=== PATIENT | female | born 1950 | race Caucasian/White ===

== ENCOUNTER 2025-02-04 13:29 | Outpatient (AMB) | payer MEDICARE, OTHER, SELFPAY ==
--- NOTE | 2025-02-04 13:32 | A.OFFPC_ITS ---
Vital Signs 02/04/25 13:35 Height 5 ft 0.5 in Weight 174 lb 2 oz BMI 33.4 BP 120/82 Blood Pressure Location Rt brachial Position Sitting Respiration 16 Pulse 78 Pulse Source Pulse Oximeter Temp 97.1 F Temp Source Temporal Artery Scan Pulse Oximetry (%) 98 Oxygen Delivery Method Room Air Intake Visit Reasons: Routine, establish care Rn Medicare Required: No Accompanied by: Self / Same As Patient Allergies triamcinolone (From Kenalog) Adverse Reaction (Intermediate, Verified 02/04/25 13:32) tachycardia erythromycin base Adverse Reaction (Unknown, Verified 02/04/25 13:32) Unknown Medication List - Last Reconciled 02/04/25 by Mary Ann Shell MD ascorbic acid (vitamin C) mg PO bupropion HCl SR 200 mg PO QAM calc-D3-mag cit,ox-K2-herb 353 300 mg-25 mcg- 66 mg-37.5 mcg (Alive Calcium- Vitamin D3-K2) tabs PO coenzyme Q10 (CoQ-10) 100 mg PO DAILY fluoxetine 20 mg PO QAM fluticasone propionate 50 mcg/actuation 1 spray intranasal BID PRN lorazepam 0.5 mg PO BID PRN magnesium 200 mg PO DAILY methylphenidate HCl 10 mg PO QAM PRN multivitamin 1 tab PO DAILY protein ea PO trazodone 100 mg PO BEDTIME PRN Tobacco use date assessed: 02/04/25 Fall risk assessment: No Falls in past year Last assessed Fall Risk: 02/04/25 Dental Screening Dental Screen Date: 02/04/25 Did you have a dental visit in the last 12 months?: Yes Did you have a dental problem in the last 6 months where you did not have access to dental care?: No Was dental information given to patient?: Patient has dentist HPI HPI Comments History of Present Illness Details The patient is a 74 year old female presenting to [facility]. Depression and Anxiety: The patient has a past medical history of depression and anxiety and is established with a psychiatrist. She uses lorazepam sparingly for intense e pisodes of anxiety. She is currently processing her daughter's recent diagnosis of Lewy body dementia. Thrombophlebitis: The patient had a recent emergency room visit on January 07 for right lower extremity swelling and was diagnosed with thrombophlebitis. Osteoarthritis of right knee: The patient has ongoing right knee osteoarthritis and is being seen by [facility]. She has received steroid injections which have provided some pain improvement and has another one scheduled for February. She tried using compression stockings for her leg swelling but noted this increased discom fort in her right knee. RBBB branch block: The patient has know history was referred after she had an EKG done at an urgent care. Saw medical records director who discussed statin use based on her cardiovascular risk factor. Pt declined and coronary calcium CT was suggested. Health Maintenance: The patient has a history of polyps and is due for a colonoscopy soon. Mammogram done 12/2023 at [facility] Social History: - The patient is processing the recent d iagnosis of her daughter, who has Lewy Body Dementia and now lives in a facility. Review of Systems - Musculoskeletal: Reports ongoing right knee pain from osteoarthritis, which improves with steroid injections. - Extremities: Reports recent right lowe r extremity swelling. - Psychiatric: Reports episodes of anxie ty. Physical Exam - General: The patient is in no acute di stress. - HEENT: Extraocular movements are intac t. - Cardiovascular: Normal S1 and S2 heart sounds were auscultated. A soft murmur was noted across the precordium. - Lungs: Clear to auscultation bilateral ly. - Abdomen: Soft, nontender, and nondiste nded with normoactive bowel sounds. - Extremities: Trace edema was noted kalen aterally. - Breasts: No masses were palpated. Dens e breast tissue appreciated. Assessment and Plan 1. Re-establishment of care/Health Maint enance - The patient is a 74-year-old female es [facility]. - Plan is to obtain baseline labs includ ing a CBC, CMP, lipid panel, and A1c. - Will also obtain outside records. - The patient is due for a colonoscopy a nd her mammogram is up to date. 2. Thrombophlebitis of right lower extre mity - Patient was recently diagnosed in the ER. - Ultrasound report obtained- no evidenc e of DVT 3. Depression and anxiety - The patient has an established psychia trist and uses lorazepam as needed. - She will continue to follow up with [facility] psychiatrist. 4. Right bundle branch block - This was noted on a prior EKG. per car diologist - follow up re coronary calcium CT. 5. Right knee osteoarthritis - This is managed by an orthopedist with steroid injections, and the patient has one scheduled for February. Discussion Notes I have discussed the plan with the patient. We will proceed with ordering bloodwork including a CBC, CMP, lipid panel, and A1c. Patient Instructions - Please go to the lab to have your bloo d drawn for a complete blood count, metabolic panel, lipid panel, and hemoglobin A1c. - Continue to see your psychiatrist for your depression and anxiety as you have been. [facility] Medical History (Updated 02/04/25 @ 15:25 by Mary Ann Shell MD) Right knee pain Routine adult health maintenance Colon polyps Osteoarthritis, knee Impaired fasting glucose Anxiety Depression Surgical History (Updated 02/03/25 @ 18:51 by Mary Ann Shell MD) H/O arthroscopic knee surgery History of colonoscopy (~08/03/20) Family History (Updated 02/03/25 @ 18:55 by Mary Ann Shell MD) Daughter Lewy body dementia Mother Breast cancer Other Colon cancer Depression PTSD (post-traumatic stress disorder) Social History Housing: House Patient Tobacco Use Status: Never used Tobacco e-Cigarette/Vaping Use: Never Used service: No Current occupational status: retired Questionnaire AUDIT C Alcohol Use Questionnaire (AUDIT-C) 1. How often do you have a drink containing alcohol?: 2-4 times a month 2. How many drinks containing alcohol do you have on a typical day when you are drinking?: 1 or 2 3. How often do you have six or more drinks on one occasion?: Never Total Score: 2 Physical exam (Primary Care) Vital Signs: Last Vital Signs Temp 97.1 F 02/04/25 13:35 Pulse 78 02/04/25 13:35 Resp 16 02/04/25 13:35 BP 120/82 02/04/25 13:35 Pulse Ox 98 02/04/25 13:35 Oxygen Delivery Method Room Air 02/04/25 13:35 BMI result Body Mass Index 33.4 Tobacco/Smoking Status: Tobacco use Status Tobacco use date assessed 02/04/25 02/04/25 13:34 Patient Tobacco Use Status Never used Tobacco 02/04/25 13:43 e-Cigarette/Vaping Use Never Used 02/04/25 13:43 Coding Level of Care Code Est Pt Level 4 (17350) Complex EM visit Add On G2211 Diagnoses Impaired fasting glucose R73.01 Depression, unspecified depression type F32.A Depression Type: unspecified Anxiety F41.9 Primary osteoarthritis of right knee M17.11 Laterality: right Osteoarthritis type: primary Assessment & Plan Assessment & Plan (1) Impaired fasting glucose: Code(s): R73.01 - Impaired fasting glucose Category: Medical (2) Depression: Code(s): F32.A - Depression, unspecified Category: Medical Qualifiers: Depression Type: unspecified Qualified Code(s): F32.A - Depression, unspecified (3) Anxiety: Code(s): F41.9 - Anxiety disorder, unspecified Category: Medical (4) Osteoarthritis, knee: Code(s): M17.9 - Osteoarthritis of knee, unspecified Category: Medical Qualifiers: Laterality: right Osteoarthritis type: primary Qualified Code(s): M17.11 - Unilateral primary osteoarthritis, right knee Plan - Order labs: CBC, CMP, lipid panel, and A1c. - Continue follow-up with psychiatrist for depression and anxiety. - Follow up with orthopedics - colonoscopy referral Orders: Orders Complete Blood Count Auto Diff Today R73.01 - Impaired fasting glucose, Z00.00 - Encounter for general adult medical examination without abnormal findings Comprehensive Met. Panel Today R73.01 - Impaired fasting glucose, Z00.00 - Encounter for general adult medical examination without abnormal findings TSH reflex Free T4 Today R73.01 - Impaired fasting glucose, Z00.00 - Encounter for general adult medical examination without abnormal findings Hemoglobin A1c Today R73.01 - Impaired fasting glucose C Reactive Protein Today M25.561 - Pain in right knee Lipid Panel Today R73.01 - Impaired fasting glucose, Z00.00 - Encounter for general adult medical examination without abnormal findings Referrals Gastroenterology Referral K63.5 - Polyp of colon Medications: New lorazepam 0.5 mg PO BID PRN 28 tabs 2RF anxiety clotrimazole-betamethasone 1-0.05 % 1 appl topical BID 45 grams 8RF 2 weeks fluticasone propionate 50 mcg/actuation 1 spray intranasal BID PRN 16 grams 11RF nasal congestion
[2025-02-04 13:35] VITALS: BP 120/82; PULSE 78; RESP 16; TEMP 36.2; O2SAT 98; BMI 33.4
--- OUTSIDE RECORDS SUMMARY | 2025-02-04 16:21 | XMS_ITS | Clinical Summary ---
Author Organization [facility] Address [address] [place] [address] Phone Care Team Providers Care Upper Cutter Name Role Phone Puja Johnson MD Primary Care Provider [phone] Allergies Active Allergy Reactions Criticality Noted Date Comments Erythromycin 05/29/2024 Triamcinolone Acetonide 05/29/2024 Medications buPROPion SR (WELLBUTRIN SR) 200 mg 12 hr tablet Take 1 tablet (200 mg total) by mouth 1 (one) time each day in the morning. 5 Active traZODone (DESYREL) 100 mg tablet Take 1 tablet (100 mg total) by mouth at bedtime as needed. at bedtime 5 Active methylphenidate (RITALIN) 10 mg tablet TAKE 1 TABLET (10 MG) BY MOUTH AFTER BREAKFAST NEEDED 5 Active LORazepam (ATIVAN) 0.5 mg tablet TAKE 1 TABLET BY MOUTH TWICE A DAY NEEDED FOR ANXIETY FOR 14 DAYS 5 Active fluticasone propionate (FLONASE) 50 mcg/actuation nasal spray Administer 1 spray into each nostril 2 (two) times a day. 4 Active FLUoxetine (PROzac) 10 mg capsule TAKE 1 CAPSULE BY MOUTH DAILY WITH 20MG 5 Active calcipotriene (DOVONEX) 0.005 % cream Apply topically 2 (two) times a day. Active calcium citrate-vitamin D 250 mg-2.5 mcg (100 unit) per tablet Take 1 tablet by mouth 2 (two) times a day. Active guaiFENesin (ROBITUSSIN) 100 mg/5 mL liquid Take 10 mL (200 mg total) by mouth 3 (three) times a day if needed for cough. Active Social History Tobacco Use Types Packs/Day Years Used Date Smoking Tobacco: Never Assessed Comments Unknown Sex and Gender Information Value Date Recorded Sex Assigned at Not on file Legal Sex Female 8:12 AM EST Gender Identity Not on file Sexual Orientation Not on file Plan of Treatment Health Maintenance Due Date Last Done Comments Zoster Vaccines (1 of 2) 1998 Falls Risk Assessment 02/26/2022 Hepatitis C Screening 02/26/2022 Medicare Annual Wellness Visit 02/26/2022 Social Influencers of Health Screening 02/26/2022 Pneumococcal Vaccine: 50+ Years (2 of 2 - PCV20 or PCV21) 05/24/2022 05/24/2021 RSV Immunization Adult Patients (1 - 1-dose 75+ series) 12/29/2023 Depression Screening 03/26/2024 COVID-19 Vaccine ( - season) 2024 12/26/2022, 01/06/2021, 06/03/2020, Additional history exists Influenza Vaccine (#1) 2024 , 03/31/2023, 03/08/2022, Additional history exists DTaP,Tdap,and Td Vaccines (3 - Td or Tdap) 03/26/2027 03/26/2017, 03/21/2010 Osteoporosis Screening (Bone Density Screening) 01/15/2034 01/16/2024, 02/23/2020 Hepatitis A Vaccines Aged Out 12/05/2010, 04/18/2010, 03/21/2010 No longer eligible based on patient's age to complete this topic Hepatitis B Vaccines Completed 12/05/2010, 04/18/2010, 03/21/2010 Breast Cancer Screening Discontinued 01/15/20, 12/07/2022, 06/23/2021, Additional history exists HIB Vaccines Aged Out No longer eligi ble based on patient's age to complete this topic HPV Vaccines Aged Out No longer eligi ble based on patient's age to complete this topic IPV Vaccines Aged Out No longer eligi ble based on patient's age to complete this topic MMR Vaccines Aged Out No longer eligi ble based on patient's age to complete this topic Meningococcal ACWY Vaccine Aged Out N o longer eligible based on patient's age to complete this topic Meningococcal B Vaccine Aged Out No l onger eligible based on patient's age to complete this topic RSV Immunization Patients Under 20 months Aged Out No longer eligible based on patient's age to complete this topic Varicella Vaccines Aged Out No longer eligible based on patient's age to complete this topic Procedures Procedure Name Priority Date/Time Associated Diagnosis Comments Y[facility]IET DEXA AXIAL SKELETON Routine 01/16/2024 4:27 PM EDT YULIET SCREENING DIGITAL Routine 01/15/2024 11:32 AM EDT from Last 3 Months or Most Recently Relevant to Health Maintenance Results * YULIET DEXA AXIAL SKELETON (01/16/2024 4:27 PM EDT) Anatomical Region Laterality Modality Mammography 01/15/2024 9:58 AM EDT Narrative 01/16/2024 4:27 PM EDT [facility] Diagnostic Imaging Department [address] [place] [address] Patient: AMANDA DEGROOT /Age/Sex: 1950 - 73 - F Unit#: [id number] Location/Status: SPDIMAM/REG CLI Mnemonic/Ordering Site: MAMDEXAAX/SPMAM Ordering Physician: PUJA JOHNSON MD [facility] Dexa Axial Skeleton - 01/15/24 - [id number] Report Status:Signed History: Low estrogen state due to menopause. Personal history of fracture. Comparison: 02/23/20 Findings: Bone densitometry is performed utilizing dual energy x-ray absorptiometry (DXA) in the [facility] unit. The lumbar spine and proximal femora are evaluated in the AP projection. The FRAX questionaire was completed. The results indicate normal bone mineral density, with a right femoral neck T- score of -0.6. The Z score is 1.0, indicating bone mineral density slightly higher than normal for age. There has been no statistically significant change. The detailed DEXA report will be mailed to the referring physician's office. [facility] FRAX: 10-year Probability of Fracture: Major Osteoporotic 12.3 percent Hip 1.3 percent. IMPRESSION: Normal bone mineral density. [id number] Dictating Physician: VALERIE BROWN MD Electronically Signed by: VALERIE BROWN MD Dic Date/Time: 01/16/241626 Sign date/Time: 01/16/241626 Procedure Note Valerie Brown MD - 01/22/2024 [facility] Diagnostic Imaging Department [address] [place] [address] Patient: LEVARWENDYAMANDAO.B./Age/Sex: 1950 - 73 - F Unit#: [id number] [facility] Ordering Physician: PUJA JOHNSON MD [facility] Dexa Axial Skeleton - 01/15/24 - [id number] Report Status:Signed History: Low estrogen state due to menopause. Personal history offracture. Comparison: 02/23/20 Findings: Bone densitometry is performed utilizing dual energy x-ray absorptiometry(DXA) in the [facility] unit. The lumbar spine and proximal femora areevaluated in the AP projection. The FRAX questionaire was completed. The results indicate normal bone mineral density, with a right femoralneck T- score of -0.6. The Z score is 1.0, indicating bone mineral densityslightly higher than normal for age. There has been no statistically significant change. The detailed DEXAreport will be mailed to the referring physician's office. [employer] FRAX: 10-year Probability of Fracture: Major Osteoporotic 12.3 percent Hip 1.3 percent. IMPRESSION: Normal bone mineral density. [id number] Dictating Physician: VALERIE BROWN MD Electronically Signed by: VALERIE BROWN MD Dic Date/Time: 01/16/241626 Sign date/Time: 01/16/241626 us Puja Johnson MD IMG BI PROCEDURES Final Re sult * YULIET SCREENING DIGITAL (01/15/2024 11:32 AM EDT) Anatomical Region Laterality Modality Mammography 01/15/2024 9:58 AM EDT Narrative 01/15/2024 11:32 AM EDT [facility] Diagnostic Imaging Department [address] [place] [id number] Patient: JOEAMANDAO.B./Age/Sex: 1950 - 73 - F Unit#: [id number] Location/Status: SPDIMAM/REG CLI Mnemonic/Ordering Site: [facility] Ordering Physician: PUJA JOHNSON MD [facility] Screening Digital - 01/15/24 - 1053 Report Status:Signed EXAM: [facility] Screening Digital EXAM DATE AND TIME: 01/15/2024 10:54 AM HISTORY: Annual screening COMPARISON: 12/07/2022, 06/23/2021, 02/23/2020 and 02/15/2018 TECHNIQUE: Bilateral digital breast tomosynthesis was performed in the CC and MLO projections. Computer aided detection with 9GAG 7.2-H and [employer] 3D 3.1 was employed. TISSUE DENSITY: b. There are scattered areas of fibroglandular density. FINDINGS: No suspicious masses, grouped microcalcifications, or areas of architectural distortion are seen. The skin and vascularity are unremarkable. IMPRESSION: Stable mammographic appearance of the breasts. No evidence of malignancy is seen. A negative mammogram in the presence of a clinically suspicious palpable abnormality does not preclude the possibility of malignancy or alter the indications for biopsy. BI-RADS: Category 1: Negative RECOMMENDATION(S): 1: Routine screening mammogram BILATERAL in 1 year. Dictating Physician: COBY CHAVIRA MD Electronically Signed by: COBY CHAVIRA MD Dic Date/Time: 01/15/24 1129 Sign date/Time: 01/15/24 1132 Procedure Note Coby Chavira MD - 01/22/2024 [facility] Diagnostic Imaging Department [address] [place] [address] Patient: AMANDA DEGROOT /Age/Sex: 1950 - 73 - F Unit#: [id number] Location/Status: [facility]/REG CLI Mnemonic/Ordering Site: [facility] Ordering Physician: PUJA JOHNSON MD [facility] Screening Digital - 01/15/24 - 1053 Report Status:Signed EXAM: [facility] Screening Digital EXAM DATE AND TIME: 01/15/2024 10:54 AM HISTORY: Annual screening COMPARISON: 12/07/2022, 06/23/2021, 02/23/2020 and 02/15/2018 TECHNIQUE: Bilateral digital breast tomosynthesis was performed in the CCand MLO projections. Computer aided detection with 9GAG 7.2-H and[employer] 3D 3.1 was employed. TISSUE DENSITY: b. There are scattered areas of fibroglandular density. FINDINGS: No suspicious masses, grouped microcalcifications, or areas ofarchitectural distortion are seen. The skin and vascularity are unremarkable. IMPRESSION: Stable mammographic appearance of the breasts. No evidence of malignancyis seen. A negative mammogram in the presence of a clinically suspicious palpable abnormality does not preclude the possibility of malignancy or alter the indications for biopsy. BI-RADS: Category 1: Negative RECOMMENDATION(S): 1: Routine screening mammogram BILATERAL in 1 year. Dictating Physician: COBY CHAVIRA MD Electronically Signed by: COBY CHAVIRA MD Dic Date/Time: 01/15/24 1129 Sign date/Time: 01/15/24 1132 Puja Johnson MD IMG BI PROCEDURES Final Re sult from Last 3 Months or Most Recently Relevant to Health Maintenance Insurance MEDICARE [facility] Care Teams Upper Cutter Relationship Specialty Start Date End Date Puja Johnson MD [address] [place] [address] PCP - General Internal Medicine 05/29/24
--- OUTSIDE RECORDS SUMMARY | 2025-02-04 16:22 | XMS_ITS | Data Portability ---
Author Organization [facility], [facility] Address [address] [place] [address] Care Team Providers Care Director Of Vocational Guidance Name Role Phone PUJA JOHNSON Referring Provider [phone] PUJA JOHNSON Primary Care Provider Assessment Encounter Date Assessment Date Assessment LastModified by Organization Details LastModified Time 09/24/2024 09/24/2024 A: Pt presents c improved aa flex today. Responded well to progressions c clams. Sore post rx. Rx shortened d/t time constraints. P: Cont c POC. Not available 09/24/2024 16:17:32 10/07/2024 10/07/2024 A: Pt presents c poor angelica to rx today, ther ex modified to pt angelica, pain throughout session. Flexion ROM sig decreased today d/t pain. P: Cont c POC. Not available 10/07/2024 13:33:05 10/10/2024 10/10/2024 A: Pt's flexion is very compared with her left side. P: Cont c POC. [email or web address] Not available 10/10/2024 15:34:25 10/15/2024 10/15/2024 A: Pt presents c good angelica to ther ex c modified positioning. Tight c HS stretch. P: Cont c POC. Not available 10/15/2024 13:35:25 10/21/2024 10/21/2024 I am seeing the patient today under the supervision of who was available but who did not see the patient. HPI: Patient comes in for recheck of right knee pain. Has known osteoarthritis in the lateral compartment of the knee(s). We had implemented gel injections approximately 4 months ago, started physical therapy shortly after this. Patient is here today for recheck after these modalities. No new injury or modalities. PT has been aggravating things as of recent. She is having difficulties with activities of daily living. Past family, medical, social history and review of systems has been reviewed, updated and is located in the patient s chart. Examination:The patient is well appearing and in no apparent distress. Alert and oriented x3. Vital signs per intake sheet. Examination of the right knee reveals Mild effusion. No erythema or warmth. Decreased range of motion. slight valgus deformity. Point tender over the lateral joint line. Calf soft and nontender. 4+/5 strength of knee flexion extension. Impression: Osteoarthritis, right knee Plan: Nature of the diagnosis discussed with the patient today. Both surgical and nonsurgical options were reviewed. Conservative measures were discussed at length including but not limited to physical therapy, bracing, anti-inflammatori es and injection therapies. Please see the procedure note for documentation about the procedure performed today. Follow-up with us in 3 months for discussion of continued conservative management versus surgical management. [email or web address] Not available 10/21/2024 16:10:25 Plan of Treatment Reminders Order Date Submit Date Provider Last Modified By Organization Details Last Modified Time Details Appointments RECHECK 15 2024 09:15A Socorro Morrow PA-C Not available Not available Not available Lab None recorded . Referral None recorded . Procedures None recorded . Surgeries None recorded . Imaging XR, knee, 4 or more view - recheck right knee pain room [address] [facility], [address], [address], [place], [address], 10/31/2024 13:26:59 Medication Orders None recorded . Patient TargetsNo targets recorded. Patient InstructionsNo instructions recorded. Reason for Referral None Reported. Results Created Date Observation Date Name Description Value Unit Range Abnormal Flag Note LastModifiedBy Organization Detail LastModifiedTime 10/22/19 25 10/21/2024 XR, knee, 4 or more view http:/ [email or web address] ?Encry pted=s hAaTro YD8dLq bEUv6g %2BXZw aYqtaq 0bqfl% 2Fg9IQ a4ajBk vP9nXo QUaueC m3YtLR FvZlgJ JJ8mAn HZtai3 9c0027 AC0Klb n6DVaa hKiQtr MwF INTERFACE [facility] Office [address] [facility] [address], [place], [address], 10/21/2024 15:58:37 10/22/19 25 10/21/2024 XR, knee, 4 or more view http:/ [email or web address] ?Encry pted=s hAaTro YD8dLq bEUv6g %2BXZw aYqtaq 0bqfl% 2Fg9IQ a4ajBk vP9nXo QUaueC m3YtLR FvZlgJ JJ8mAn HZtai3 1p8268 AC0Klb n6DVaa hKiQtr MwF INTERFACE [facility] [address] [address], [place], [address], 10/21/2024 15:58:38 Result Notes Documentation Provider Name and Address Organization Details Recorded Time Xr, Knee, 4 Or More View : [email or web address]? Encrypted=jrQrUluLA4jOsxP Uv6g%9FWSxcIizji1qesq%2Fg 1RFm3pwWhdN0tOpJSuxuHu6Nc XXRtPsfBKE4cUvZSmbk08p921 3FN7Uwzj8YJnurTiFwwTcX Not Available [facility] 10/21/2024 15:58: 37 Xr, Knee, 4 Or More View : [email or web address] Encrypted=dfQfIhpLA0tAdjQ Uv6g%6HNKfvLxqzj4gkou%2Fg 4BTg4syXqmF2iRaHGoieBz2Wx QQNmXzzSJQ6aTnFYula52b587 2DD7Cmtl4NSpylMxMupZjH Not Available [facility] 10/21/2024 15:58: 39 Problems Name Problem SNOMED Code Status Onset Date Resolution Date Notes Provider Name and Address Organization Details Recorded Time No complaints 334054723 Active Status : 'A'; Not Available [facility] 4 09:20:28 Tear of lateral meniscus of knee 352293751 Active 2023 RONALD persaud, [facility] 4 14:54:34 Acute tear of lateral meniscus of right knee 3325753244509 9100 Active 2023 RONALD GAMEZ null, [facility] 4 15:01:28 Tear of lateral meniscus of knee 887580358 Active 2023 RONALD GAMEZ [facility], [facility] 4 15:06:23 Osteoarthr itis of right knee joint 0485604631024 00 Active 2024 Ora Arevalo, [employer] [address] [facility], [place], [address] , [facility] 5 12:29:01 Pain of right knee joint 9413321264329 00 Active 2024 ASHWIN L'HEUREUX [facility], [facility] 5 15:51:17 Problem Notes None recorded. Procedures Surgical History Date Name Laterality Status Provider Name and Address Organization Details Recorded Time 5 53292 Therapeutic Exercise (1:1) cancelled Tarun Reaves PT [address] [facility], [place], [address], [facility] 10/21/2024 14:34:54 5 JZKNEE INJ completed Giuliano Morrow PA-C [address], [place], [address], [facility] 10/21/2024 16:05:13 5 96015 Therapeutic Exercise (1:1) cancelled Tarun Reaves PT [address], [place], [address], [facility] 10/17/2024 11:51:02 5 23261 Therapeutic Exercise (1:1) completed Ora Arevalo PTA [address], [place], [address], [facility] 10/15/2024 13:35:02 5 41364 Therapeutic Exercise (1:1) completed Tarun Revaes, PT [address], [place], [address], [facility] 10/10/2024 15:33:27 5 73986 Therapeutic Exercise (1:1) completed Ora Arevalo [employer] [address], [place], [address], [facility] 10/07/2024 13:31:12 5 05034 Therapeutic Exercise (1:1) cancelled Ora Arevalo PTA [address], [place], [address], [facility] 09/30/2024 12:17:04 5 58223 Therapeutic Exercise (1:1) cancelled Ora Arevalo PTA [address], [place], [address], [facility] 09/29/2024 11:49:49 5 99498 Therapeutic Exercise (1:1) completed Ora Arevalo PTA [address], [place], [address], [facility] 09/24/2024 15:48:42 5 97633 Therapeutic Exercise (1:1) completed Tarun Reaves, PT [address], [place], [address], [facility] 09/18/2024 11:43:49 5 11847 Therapeutic Exercise (1:1) cancelled Ora Arevalo [employer] [address], [place], [address], [facility] 09/12/2024 15:17:11 5 99472 Therapeutic Exercise (1:1) completed Ora Arevalo [employer] [address], [place], [address], [facility] 09/10/2024 12:30:33 5 32155 Therapeutic Exercise (1:1) completed Ora Arevalo, [employer] [address], [place], [address], [facility] 09/08/2024 15:30:04 5 67715 Therapeutic Exercise (1:1) completed Ora Arevalo [employer] [address], [place], [address], [facility] 09/04/2024 15:56:41 5 34356 Therapeutic Exercise (1:1) completed Tarun Reaves PT [address], [place], [address], [facility] 08/28/2024 09:42:58 5 17416 Therapeutic Exercise (1:1) completed Tarun Reaves PT [address], [place], [address], [facility] 08/28/2024 12:03:22 5 22134 Therapeutic Exercise (1:1) cancelled Ora Arevalo [employer] [address], [place], [address], [facility] 08/22/2024 16:53:04 5 94458 Therapeutic Exercise (1:1) cancelled Ora Arevalo [employer] [address], [place], [address], [facility] 08/20/2024 12:17:16 5 70114 Therapeutic Exercise (1:1) completed Ora Arevalo, [employer] [address], [place], [address], [facility] 08/13/2024 16:21:15 5 82274 Therapeutic Exercise (1:1) completed Tarun Reaves, PT [address], [place], [address], [facility] 08/11/2024 13:09:14 5 62332 Therapeutic Exercise (1:1) completed Tarun Reaves, PT [address], [place], [address], [facility] 08/07/2024 09:51:03 5 91783: Low complexity PT Eval completed Tarun Reaves, PT [address], [place], [address], [facility] 08/07/2024 07:09:11 5 G8421 BMI Not Calculated, Reason Not Specified completed Tarun Reaves, PT [address], [place], [address], [facility] 08/07/2024 09:51:09 5 G8427 Current Medication Documented completed Tarun Reaves PT [address], [place], [address], [facility] 08/07/2024 09:51:14 5 Hymovis Knee Injection completed Giuliano Morrow PA-C [address], [place], [address], [facility] 06/09/2024 08:13:19 5 Hymovis Knee Injection completed Giuliano Morrow PA-C [address], [place], [address], [facility] 06/02/2024 07:37:16 4 70840 Therapeutic Exercise (1:1) completed Refugio Sun PTA [address], [place], [address], [facility] 01/03/2024 17:32:37 4 22976 Therapeutic Exercise (1:1) completed Refugio Sun PTA [address], [place], [address], [facility] 12/19/2023 12:43:44 4 10123 Therapeutic Exercise (1:1) completed Refugio Sun PTA [address], [place], [address], [facility] 12/11/2023 18:11:22 4 79637 Therapeutic Exercise (1:1) completed Refugio Sun PTA [address], [place], [address], [facility] 12/06/2023 18:30:20 4 83776 Therapeutic Exercise (1:1) completed Refugio Sun PTA [address], [place], [address], [facility] 11/27/2023 18:04:45 4 89725 Therapeutic Exercise (1:1) completed Refugio Sun PTA [address], [place], [address], [facility] 11/21/2023 11:24:17 4 32761 Therapeutic Exercise (1:1) cancelled Refugio Sun PTA [address], [place], [address], [facility] 11/16/2023 10:54:13 4 99152 Therapeutic Exercise (1:1) cancelled Refugio Sun PTA [address], [place], [address], [facility] 11/19/2023 11:57:49 4 60967 Therapeutic Exercise (1:1) completed Refugio Sun PTA [address], [place], [address], [facility] 11/15/2023 17:31:46 4 45306 Therapeutic Exercise (1:1) cancelled Refugio Sun PTA [address], [place], [address], [facility] 11/09/2023 11:19:58 4 76244 Therapeutic Exercise (1:1) completed Refugio Sun PTA [address], [place], [address], [facility] 11/07/2023 15:50:29 4 71698 Therapeutic Exercise (1:1) completed Refugio Sun PTA [address], [place], [address], [facility] 11/06/2023 16:19:44 4 26452 Therapeutic Exercise (1:1) completed Refugio Sun PTA [address], [place], [address], [facility] 10/31/2023 11:54:40 4 27730 Therapeutic Exercise (1:1) completed Refugio Sun PTA [address], [place], [address], [facility] 10/30/2023 17:12:18 4 81852: Manual therapy completed Refugio Sun PTA [address], [place], [address], [facility] 10/30/2023 18:31:53 4 92728 Therapeutic Exercise (1:1) completed Refugio Sun PTA [address], [place], [address], [facility] 10/26/2023 11:59:33 4 03875 Therapeutic Exercise (1:1) completed Tarun Reaves, PT [address], [place], [address], [facility] 10/24/2023 16:42:31 4 28487 Therapeutic Exercise (1:1) cancelled Tarun Reaves PT [address], [place], [address], [facility] 10/16/2023 09:21:55 4 21707 Therapeutic Exercise (1:1) completed Tarun Reaves PT [address], [place], [address], [facility] 10/15/2023 18:52:54 4 94934 Therapeutic Exercise (1:1) completed Refugio Sun [employer] [address], [place], [address], [facility] 10/12/2023 10:20:54 4 35459 Therapeutic Exercise (1:1) completed Refugio Sun [employer] [address], [place], [address], [facility] 10/03/2023 12:22:18 4 62182 Therapeutic Exercise (1:1) completed Refugio Sun PTA [address], [place], [address], [facility] 10/01/2023 16:44:52 4 13572 Therapeutic Exercise (1:1) completed Refugio Sun PTA [address], [place], [address], [facility] 09/28/2023 16:08:45 4 42534 Therapeutic Exercise (1:1) completed Refugio Sun PTA [address], [place], [address], [facility] 09/28/2023 16:19:10 4 66824 Therapeutic Exercise (1:1) completed Refugio Sun PTA [address], [place], [address], [facility] 09/18/2023 17:59:49 4 77908 Therapeutic Exercise (1:1) completed Tarun Reaves PT [address], [place], [address], [facility] 09/14/2023 12:01:24 4 97424: Low complexity PT Eval completed Tarun Reaves, PT [address], [place], [address], [facility] 09/14/2023 12:01:15 4 G8421 BMI Not Calculated, Reason Not Specified completed Tarun Reaves, PT [address] [facility], [place], [address], [facility] 09/14/2023 12:00:43 4 G8427 Current Medication Documented completed Tarun Reaves, PT [address], [place], [address], [facility] 09/14/2023 12:00:31 4 Gel-One Knee Injection completed Giuliano Morrow PA-C [address] [facility], [place], [address], [facility] 06/13/2023 06:43:44 Imaging Results None recorded. Procedure Notes None recorded. Medical Equipment None Reported. Allergies Allergen ID Allergen Name Allergen Category Reaction Reaction Severity Criticality Documentation Date Start Date Code Code System Note Provider Name and Address Organization Details Recorded Time 764852 erythromy jonah medicatio n Not available Not available Not available 06/12/2023 4053 RxNorm KAYLIA L'HEUREUX [facility] 4 12:03:13 Medications Name Sig Start Date Stop Date Status Note LastModified by Organization Details LastModified Time amoxicillin 500 mg capsule TAKE 1 CAPSULE BY MOUTH 3 TIMES A DAY 06/11 completed Not Available Not Available Not Available trazodone 50 mg tablet 04/11 completed Not Available Not Available Not Available benzonatate 200 mg capsule TAKE 1 CAPSULE BY MOUTH THREE TIMES A DAY NEEDED FOR COUGH FOR 5 DAYS active Not Available Not Available No t Available methylpheni date 10 mg tablet TAKE 1 TABLET (10 MG) BY MOUTH AFTER BREAKFAST NEEDED active Not Available Not Available No t Available hydrocodone 5 mg-acetamin ophen 325 mg tablet TAKE 1 TABLET BY MOUTH EVERY 6 HOURS NEEDED PAIN 06/11 completed Not Available Not Available Not Available meloxicam 15 mg tablet Take 1 tablet every day by oral route after meal(s). 2023 active Not Available Not Available Not Avai lable tramadol 50 mg tablet TAKE 1 TABLET EVERY 6 HOURS BY ORAL ROUTE AFTER MEAL(S). active Not Available Not Available No t Available lorazepam 0.5 mg tablet TAKE 1 TABLET BY MOUTH TWICE A DAY NEEDED FOR ANXIETY FOR 14 DAYS active Not Available Not Available No t Available trazodone 100 mg tablet TAKE 1 TABLET DAILY NEEDED AT BEDTIME active Not Available Not Available No t Available benzonatate 100 mg capsule TAKE 2 CAPSULES BY MOUTH 3 TIMES A DAY active Not Available Not Available No t Available doxycycline monohydrate 100 mg capsule TAKE 1 CAPSULE BY MOUTH TWICE A DAY FOR 7 DAYS active Not Available Not Available No t Available cephalexin 500 mg capsule TAKE 1 CAPSULE BY MOUTH TWICE A DAY FOR 5 DAYS active Not Available Not Available No t Available clotrimazol e-betametha sone 1 %-0.05 % topical cream APPLY TO AFFECTED AREA TWICE A DAY active Not Available Not Available No t Available fluoxetine 10 mg capsule TAKE 1 CAPSULE BY MOUTH DAILY WITH 20MG active Not Available Not Available No t Available ibuprofen 200 mg tablet TAKE 1-3 CAPSULES NEEDED EVERY 8 HOURS active Not Available Not Available No t Available cephalexin 500 mg tablet TAKE 1 TABLET BY MOUTH TWICE A DAY FOR 3 DAYS active Not Available Not Available No t Available hydroxyzine HCl 10 mg tablet TAKE 1 TABLET BY MOUTH THREE TIMES A DAY NEEDED active Not Available Not Available No t Available cefdinir 300 mg capsule TAKE 1 CAPSULE BY MOUTH TWICE A DAY FOR 7 DAYS active Not Available Not Available No t Available fluoxetine 20 mg capsule TAKE 1 CAPSULE AFTER BREAKFAST active Not Available Not Available No t Available fluticasone propionate 50 mcg/actuati on nasal spray,suspe nsion SPRAY 1 SPRAY INTO EACH NOSTRIL TWICE A DAY active Not Available Not Available No t Available naproxen 500 mg tablet TAKE 1 TABLET BY MOUTH TWICE A DAY 04/11 completed Not Available Not Available Not Available amoxicillin 875 mg-potassiu m clavulanate 125 mg tablet TAKE 1 TABLET BY MOUTH 2 TIMES A DAY,X7 DAYS WITH FOOD active Not Available Not Available No t Available oxycodone 5 mg tablet TAKE 1-2 TABLETS EVERY 6 HOURS NEEDED FOR PAIN 3 DAY RX. active Not Available Not Available No t Available bupropion HCl SR 200 mg tablet,12 hr sustained-r elease TAKE 1 TABLET DAILY IN THE MORNING (SOLCO MFR) active Not Available Not Available No t Available chlorhexidi ne gluconate 0.12 % mouthwash RINSE WITH 10MLS THEN SPIT TWICE DAILY FOR 3 WEEKS *DO NOT SWALLOW active Not Available Not Available No t Available Ritalin Ritalin 10MG Tablet 2014 active Statu s: 'Curr ent'; Not Available Not Available Not Available budesonide- formoterol HFA 80 mcg-4.5 mcg/actuati on aerosol inhaler INHALE 2 PUFFS BY MOUTH TWICE A DAY (RINSE MOUTH & THROAT AFTER USE) active Not Available Not Available No t Available Vitals Date Recorded Body height Body mass index (BMI) Body weight Provider Name and Address Organization Details Last Updated DateTime 10/21/2024 157.48 cm 30.2 kg/m2 07038.74 g Camileon HeelsPAUL Morocho'[facility]OGEL[facility] 10/21/2024 15:50:56 Social History Question Answer Notes LastModified by [employer] Details LastModified Time Tobacco Smoking Status Never Smoker ASHWIN L'HEUREUNing [facility] 06/12/2023 12:04:30 What Is Your Relationship Status? Information not available 06/12/2023 Sex: Unknown Functional Status Question Answer Note LastModified by [employer] Details LastModified Time Do you use any illicit or recreational drugs? No Information not available 06/12/2023 Do you or have you ever used any other forms of tobacco or nicotine? No Information not available 06/12/2023 What is your level of alcohol consumption? None Information not available 06/12/2023 Mental Status None recorded. Family History Nothing Reported. Medical History Condition Response Coronary Artery Disease N Anxiety/Depression Y Emphysema N COPD N Pacemaker N Vascular Disease N Gastrointestinal Disease N Autoimmune disease N Orthotics N Arthritis Y Blood Clot N Acid Reflux (GERD) N Cancer N Stroke N Rheumatoid Arthritis N Arrhythmia N Fibromyalgia N Allergies/Hayfever Y Thyroid Problems N Kidney/Bladder Problems N Anemia N Heart Attack ([place]) N Diabetes N Bleeding Disorder N Seizures/Epilepsy N AIDS/HIV N Congestive Heart Failure (CHF) N Asthma N Peripheral Vascular Disease N Sleep Apnea N Hepatitis N Heart Disease N Pulmonary Embolism N Hypertension N Osteoporosis N Gynecological HistoryNo gynecological history recorded. Obstetrics History GPAL:G 0 P 0 0 0 0 Past Encounters Encounter ID Performer Location Encounter Start Date Encounter Closed Date Diagnosis/Indication Diagnosis SNOMED-CT Code Diagnosis ICD10 Code Diagnosis IMO Codes Diagnosis Note [id number] Giuliano Morrow PA-C [facility] [address] [place] [address] 06/12/2023 10:26:29 06/14/2023 07:59:05 Osteoarthritis of right knee joint 6200799578 09660 M17.11 [id number] Giuliano Morrow PA-C [facility] [address] [place] [address] 07/12/2023 17:26:30 08/02/2023 10:11:25 Pain of right knee joint [id number] 63876 M25.561 Osteoarthr itis of right knee joint [id number] M17.11 [id number] Giuliano Morrow PA-C [facility] [address] [place] [address] 07/30/2023 10:25:57 08/22/2023 14:14:35 Osteoarthritis of left knee joint [id number] M17.12 [id number] MD Marti Duran [address] [place] [address] 08/09/2023 15:19:49 08/31/2023 13:36:54 Tear of lateral meniscus of knee [id number] S83.281D [id number] Manoj Vaughan PA-C [facility] [address] [place] [address] 09/11/2023 14:25:54 10/16/2023 13:58:00 Derangement of lateral meniscus of right knee [id number] [id number] M23.713 [id number] Tarun Reaves, PT [facility] [address] [place] [address] 09/14/2023 11:00:00 09/14/2023 12:06:53 Derangement of right knee [id number] M23.006 [id number] Refugio Sun [employer] [facility] [address] [place] [address] 09/18/2023 16:52:38 09/18/2023 18:01:19 Derangement of right knee [id number] M23.317 [id number] Refugio Sun, [employer] [facility] [address] [place] [address] 09/21/2023 15:24:06 09/28/2023 16:20:07 Derangement of right knee [id number] M23.712 [id number] Refugio Sun, [employer] [facility] [address] [place] [address] 09/28/2023 15:03:31 09/28/2023 16:18:40 Derangement of right knee [id number] M23.788 [id number] Refugio Sun, [employer] [facility] [address] [place] [address] 10/02/2023 16:58:20 10/02/2023 18:34:11 Derangement of right knee [id number] M23.994 [id number] Refugio Sun, [employer] [facility] [address] [place] [address] 10/04/2023 16:54:47 10/04/2023 18:35:31 Derangement of right knee [id number] M23.594 [id number] Refugio Sun, [employer] [facility] [address] [place] [address] 10/12/2023 09:27:46 10/12/2023 10:21:39 Derangement of right knee [id number] [id number] M23.814 [id number] Tarun Reaves, PT [facility] [address] [place] [address] 10/15/2023 17:49:14 10/15/2023 18:55:29 Derangement of right knee 5519943817 [id number] M23.917 [id number] Tarun Reaves, PT [facility] [address] [place] [address] 10/24/2023 15:51:45 10/24/2023 16:47:04 Derangement of right knee [id number] M23.814 [id number] Refugio Sun, [employer] [facility] [address] [place] [address] 10/26/2023 15:51:41 10/26/2023 16:40:28 Derangement of right knee [id number] [id number] M23.510 [id number] Refugio Sun, [employer] [facility] [address] [facility] [place] [address] 10/30/2023 17:28:30 10/30/2023 18:34:32 Derangement of right knee [id number] [id number] M23.216 [id number] Refugio Sun, [employer] [facility] [address] [facility] [place] [address] 11/01/2023 17:21:35 11/01/2023 18:09:31 Derangement of right knee [id number] M23.749 [id number] Refugio Sun, [employer] [facility] [address] [facility] [place] [address] 11/06/2023 15:23:30 11/06/2023 16:27:01 Derangement of right knee 1369908473 [id number] M23.387 [id number] Refugio Sun, [employer] [facility] [address] [facility] [place] [address] 11/09/2023 07:53:10 11/09/2023 08:45:21 Derangement of right knee [id number] [id number] M23.599 [id number] Refugio Sun, [employer] [facility] [address] [facility] [place] [address] 11/15/2023 16:50:32 11/15/2023 17:32:31 Derangement of right knee [id number] [id number] M23.128 [id number] Refugio Sun, [employer] [facility] [address] [facility] [place] [address] 11/21/2023 10:32:27 11/21/2023 11:24:47 Derangement of right knee 5534136124 7274669 M23.416 [id number] Refugio Sun, [employer] [facility] [address] [place] [address] 11/27/2023 17:22:28 11/27/2023 18:35:01 Derangement of right knee 5621601354 [id number] M23.136 [id number] Refugio Sun, [employer] [facility] [address] [place] [address] 12/06/2023 17:24:50 12/06/2023 18:30:45 Derangement of right knee 5374074052 [id number] M23.325 [id number] Refugio Sun, [employer] [facility] [address] [place] [place] [address] 12/11/2023 17:29:15 12/11/2023 18:13:19 Derangement of right knee [id number] [id number] M23.555 [id number] Refugio Sun, [employer] [facility] [address] [place] [place] [address] 12/19/2023 11:59:52 12/19/2023 12:55:43 Derangement of right knee [id number] M23.951 [id number] Refugio Sun, [employer] [facility] [address] [place] [address] 01/03/2024 16:48:39 01/03/2024 17:35:11 Derangement of right knee [id number] M23.996 [id number] FLORENCIA [facility] [address] [place] [address] 04/11/2024 10:46:17 04/23/2024 11:42:09 Tear of lateral meniscus of knee 053486488 S83.281D Osteoarthr itis of right knee joint [id number] 37197 M17.11 [id number] FLORENCIA Zuniga [address] [place] [address] 06/02/2024 08:14:32 06/17/2024 07:08:48 Osteoarthritis of right knee joint [id number] [facility] M17.11 [id number] FLORENCIA [facility]un[facility] - Marti [address] floor [address] [place] [address] 06/09/2024 12:49:58 06/20/2024 15:36:12 Osteoarthritis of right knee joint [id number] [facility] M17.11 [id number] Tarun Reaves, PT MAEGAN - [facility] [address] [place] [address] 08/07/2024 08:51:34 08/07/2024 09:59:28 Osteoarthritis of right knee joint [id number] [facility] M17.11 [id number] Tarun Reaves, PT [facility] - [facility] [address] [place] [address] 08/11/2024 12:37:49 08/11/2024 13:11:45 Osteoarthritis of right knee joint [id number] [facility] M17.11 [id number] Ora Arevalo, [employer] [facility] - [facility] [address] [place] [address] 08/13/2024 15:29:14 08/13/2024 16:28:42 Osteoarthritis of right knee joint [id number] [facility] M17.11 [id number] Tarun Reaves, PT [facility] - [facility] [address] [place] [address] 09/01/2024 14:59:50 09/01/2024 15:35:40 Osteoarthritis of right knee joint [id number] [facility] M17.11 [id number] Tarun Reaves, PT [facility] - [facility] [address] [place] [address] 08/28/2024 13:26:40 08/28/2024 14:16:45 Osteoarthritis of right knee joint [id number] [facility] M17.11 [id number] Ora Arevalo, [employer] [facility] - [facility] [address] [place] [place] [address] 09/04/2024 14:50:20 09/04/2024 16:04:59 Osteoarthritis of right knee joint [id number] [facility] M17.11 [id number] Ora Arevalo, [employer] [facility] - [facility] [address] [place] [place] [address] 09/08/2024 14:29:06 09/08/2024 15:46:26 Osteoarthritis of right knee joint [id number] [facility] M17.11 [id number] Ora Arevalo, [employer] [facility] - [facility] [address] [facility] [address] 09/11/2024 12:00:31 09/11/2024 13:15:04 Osteoarthritis of right knee joint [id number] 68011 M17.11 [id number] Tarun Reaves, PT [facility] - [facility] [address] [place] [address] 09/18/2024 11:02:23 09/18/2024 11:47:56 Osteoarthritis of right knee joint [id number] 30292 M17.11 [id number] Ora Arevalo, [employer] [facility] - [facility] [address] [place] [address] 09/24/2024 15:39:00 09/24/2024 16:18:11 Osteoarthritis of right knee joint [id number] [facility] M17.11 [id number] Ora Arevalo, [employer] [facility] - [facility] [address] [facility] [address] 10/07/2024 12:58:53 10/07/2024 13:34:02 Osteoarthritis of right knee joint [id number] [facility] M17.11 [id number] Tarun Reaves, PT [facility] - [facility] [address] [facility] [place] [address] 10/10/2024 14:54:28 10/10/2024 15:35:11 Osteoarthritis of right knee joint [id number] [facility] M17.11 [id number] Ora Arevalo, [employer] [facility] - [facility] [address] [facility] [place] [address] 10/15/2024 13:04:41 10/15/2024 13:35:50 Osteoarthritis of right knee joint [id number] [facility] M17.11 [id number] FLORENCIA Zuniga - Marti [address] [place] [address] 10/21/2024 15:44:46 10/31/2024 13:26:59 Osteoarthritis of right knee joint [id number] 24744 M17.11 [id number] Pain of ri ght knee joint 3854983254 86729 M25.561 [id number] Health Concerns Section Related Observation LastModified by Organization Detai ls LastModified Time None Recorded Concern Status LastModified by Organization Details LastModified Time None Recorded Advance Directives Directive None Recorded Payers Insurance Date Sequence Insurance Name Policy Number Policy Meyer Covered Member ID Meyer Member ID Guarantor Name 10/31/2024 2 [facility] IN[facility]MNITY PL[facility] (INDEMNITY) [id number] Josie Degroot [id number] Josie Degroot 10/21/2024 1 MEDICARE [place]: [employer] Josie Morocho Tylerjuan josé [id number] Josie Scott Tylerjuan josé 11/18/2024 2 [employer] [id number] Josie Scott Tylerjuan josé [id number] Josie Scott Tylerjuan josé Notes Date Note Type Note Provider Name and Address Organization Details Recorded Time 09/24/2024 text/html Pt states that pain is about 4/10 today. States she has a hard time tolerating long drives, has pain getting up after sitting for long periods. Pt arrived 7min late. Ora Arevalo, [employer] [address], [place], [address], [facility] 09/24/2024 16:18:02 10/07/2024 text/html Pt states that pain is about 7-8/10 today. States she was really sick all last week, feels weak now and woke up hurting, was a little bit better after stretching but pain worse c increased activity. Has been trying to take care of the garden, but having a hard time keeping up.States she has been trying to call to sched a f/u c , but her calls are not being returned. Ora Arevalo, [employer] [address], [place], [address], [facility] 10/07/2024 13:33:57 10/10/2024 text/html Pt states that knee pain can still go to 8/10 at its worst. She has an appt with one of our Doctors. Tarun Reaves, PT [address], [place], [address], [facility] 10/10/2024 15:34:55 10/15/2024 text/html Pt states that knee pain is 5/10 walking in today. Still struggling with performing her home activities d/t knee pain. 5min late. Ora Arevalo, [employer] [address], [place], [address], [facility] 10/15/2024 13:35:46 OBGyn Episode No OBEpisode recorded.
== END 2025-02-04 14:48 | disposition home or self-care (01) ==
LOC: HO.HMCHD 13:29
PROVIDERS: PCP Internal Medicine; Visit Provider Internal Medicine
DX: R73.01 Impaired fasting glucose (principal); F32.A Depression, unspecified; F41.9 Anxiety disorder, unspecified; M17.11 Unilateral primary osteoarthritis, right knee

== ENCOUNTER → 2025-02-04 13:29 | Outpatient (BNVA) | payer MEDICARE, OTHER, SELFPAY | PROVIDERS: PCP Internal Medicine; Visit Provider Internal Medicine | DX: Z76.89 Persons encountering health services in other specified circumstances (principal); R73.01 Impaired fasting glucose; F32.A Depression, unspecified; F41.9 Anxiety disorder, unspecified; M17.11 Unilateral primary osteoarthritis, right knee; I80.3 Phlebitis and thrombophlebitis of lower extremities, unspecified; I45.10 Unspecified right bundle-branch block | CPT/HCPCS: 99212 ==